=== PATIENT | female | born 2000 | race Caucasian/White ===

== ENCOUNTER 2020-06-20 13:23 | Emergency (ER) | payer OTHER ==
[~2020-06-20] VITALS: Ht 170.2 cm; Wt 59.0 kg
[~2020-06-20 13:23] MED LIST: Keflex500 MG PO; Pyridium200 MG PO
[2020-06-20] MEDS ORDERED: PRENATAL TABLE1 EAC2 PO (15:49)
== END 2020-06-20 17:00 | disposition home or self-care (01) ==
LOC: ER 13:23
DX: O20.0 Threatened abortion (principal); Z3A.01 Less than 8 weeks gestation of pregnancy
CPT/HCPCS: 76801; 86900; 86901; 96372; 99284-25; J2791

== ENCOUNTER 2021-02-11 01:46 | Inpatient (IN) | payer OTHER ==
[~2021-02-11] VITALS: Ht 170.2 cm; Wt 85.0 kg
[~2021-02-11 01:46] MED LIST changes: +PRENATAL TABLE1 EAC2 PO
[2021-02-11 02:29] LABS: BASOPHILS ABSOLUTE AUTO 0.03 K/mm3 (0.00-0.23); BASOPHILS PERCENT AUTO 0 % (0-2); EOSINOPHILS ABSOLUTE AUTO 0.13 K/mm3 (0.00-0.68); EOSINOPHILS PERCENT AUTO 1 % (0-6); Hematocrit 38.8 % (33.0-51.0); Hemoglobin 13.2 g/dL (11.5-16.0); IMMATURE GRAN ABSOLUTE AUTO 0.07 K/mm3 (0.00-0.10); IMMATURE GRAN PERCENT AUTO 1 % (0-1); LYMPHOCYTES ABSOLUTE AUTO 2.76 K/mm3 (0.84-5.20); LYMPHOCYTES PERCENT AUTO 20 % (21-46); MONOCYTES ABSOLUTE AUTO 0.97 K/mm3 (0.16-1.47); MONOCYTES PERCENT AUTO 7 % (4-13); Mean Corpuscular HGB 31.1 pg (26.0-34.0); Mean Corpuscular Volume 92 fL (80-100); Mean Platelet Volume 9.9 fL (9.1-12.4); NEUTROPHILS ABSOLUTE AUTO 9.93 K/mm3 (1.96-9.15); NEUTROPHILS PERCENT AUTO 72 % (41-73); Platelet Count 187 K/mm3 (150-400); RDW Coefficient Variation 12.1 % (11.7-14.2); RDW Standard Deviation 40.6 fL (35.1-46.3); Red Blood Cell Count 4.24 M/mm3 (3.80-5.20); White Blood Cell Count 13.89 K/mm3 (4.00-11.30)
[2021-02-11 03:19] LABS: SARS-Cov-2 (COVID-19) PCR, MMC NEGATIVE (NEGATIVE)
--- NOTE | 2021-02-11 14:18 | NUR ---
1400: OOB TO SHOWER. PT FELT LEGS WERE TOO WEAK TO CE SHOWER AT THIS TIME. TO BRP, VOIDED. TOWEL BATH DONE. TONJA CARE DONE AND PT AMBULATED BACK TO BED. WILL TRY SHOWER LATER. PT TO BED TO NAP. NB IN CRIB AT BEDSIDE
--- NOTE | 2021-02-12 03:55 | NUR ---
PT REFUSE ABD BINDER, STATING "I DONT WANT TO USE IT, I DONT LIKE IT.' PT EDUCATED ON IMPORTANCE OF BINDER. PT VERBALIZED UNDERSTANDING AND STILL DECLINED.
[2021-02-12 06:24] LABS: Hematocrit 34.4 % (33.0-51.0); Hemoglobin 11.3 g/dL (11.5-16.0); Mean Corpuscular HGB 31.4 pg (26.0-34.0); Mean Corpuscular HGB Conc 32.8 g/dL (31.5-36.5); Mean Corpuscular Volume 96 fL (80-100); Mean Platelet Volume 9.9 fL (9.1-12.4); Platelet Count 145 K/mm3 (150-400); RDW Coefficient Variation 12.3 % (11.7-14.2); RDW Standard Deviation 42.6 fL (35.1-46.3); White Blood Cell Count 11.95 K/mm3 (4.00-11.30)
[2021-02-12] MEDS ORDERED: IBUP800 (12:48)
== END 2021-02-12 13:40 | disposition home or self-care (01) | DRG 806 ==
LOC: BC 01:46 → OBS 01:46 → BC 02:13
PROVIDERS: Advanced Practice Midwife; ADMIT Registered Nurse Community Health
PROC: 10E0XZZ Delivery of Products of Conception, External Approach (ICD-10-PCS; principal; 2021-02-11)
PROC: 3E0R3BZ Introduction of Anesthetic Agent into Spinal Canal, Percutaneous Approach (ICD-10-PCS; 2021-02-11)
PROC: 00HU33Z Insertion of Infusion Device into Spinal Canal, Percutaneous Approach (ICD-10-PCS; 2021-02-11)
PROC: 10907ZC Drainage of Amniotic Fluid, Therapeutic from Products of Conception, Via Natural or Artificial Opening (ICD-10-PCS; 2021-02-11)
PROC: 0HQ9XZZ Repair Perineum Skin, External Approach (ICD-10-PCS; 2021-02-11)
PROC: 3E0234Z Introduction of Serum, Toxoid and Vaccine into Muscle, Percutaneous Approach (ICD-10-PCS; 2021-02-12)
DX: O48.0 Post-term pregnancy (principal); O99.324 Drug use complicating childbirth; Z37.0 Single live birth; Z3A.40 40 weeks gestation of pregnancy; O62.2 Other uterine inertia; F12.90 Cannabis use, unspecified, uncomplicated; Z20.822 Contact with and (suspected) exposure to COVID-19; O70.0 First degree perineal laceration during delivery; F43.10 Post-traumatic stress disorder, unspecified; O77.0 Labor and delivery complicated by meconium in amniotic fluid; F41.9 Anxiety disorder, unspecified; F32.9 Major depressive disorder, single episode, unspecified; Z62.810 Personal history of physical and sexual abuse in childhood; Z23 Encounter for immunization
CPT/HCPCS: 36415; 51702; 59025; 85025; 85027; 86850; 86900; 86901; 90471; A9270; J1885; J2001; J2210; J2590; J3010; J7120; U0004

== ENCOUNTER → 2021-11-08 | Outpatient (CLI) | payer OTHER ==
[~2021-11-08] MED LIST changes: +IBUP800
== END | disposition home or self-care (01) ==
LOC: LAB 07:30 → LAB SHORT 07:30
DX: J02.9 Acute pharyngitis, unspecified (principal)
CPT/HCPCS: 87081

== ENCOUNTER 2023-01-07 07:16 | Inpatient (IN) | payer OTHER ==
[~2023-01-07] VITALS: Ht 172.7 cm; Wt 94.3 kg
[2023-01-07] VITALS (30 sets, daily range): BP systolic 111–156; BP diastolic 61–96
[2023-01-07 08:17] LABS: BASOPHILS ABSOLUTE AUTO 0.03 K/mm3 (0.00-0.23); BASOPHILS PERCENT AUTO 0 % (0-2); EOSINOPHILS ABSOLUTE AUTO 0.09 K/mm3 (0.00-0.68); EOSINOPHILS PERCENT AUTO 1 % (0-6); Hematocrit 36.3 % (33.0-51.0); Hemoglobin 12.2 g/dL (11.5-16.0); IMMATURE GRAN ABSOLUTE AUTO 0.09 K/mm3 (0.00-0.10); IMMATURE GRAN PERCENT AUTO 1 % (0-1); LYMPHOCYTES ABSOLUTE AUTO 1.83 K/mm3 (0.84-5.20); LYMPHOCYTES PERCENT AUTO 14 % (21-46); MONOCYTES ABSOLUTE AUTO 0.62 K/mm3 (0.16-1.47); MONOCYTES PERCENT AUTO 5 % (4-13); Mean Corpuscular HGB 29.4 pg (26.0-34.0); Mean Corpuscular HGB Conc 33.6 g/dL (31.5-36.5); Mean Corpuscular Volume 88 fL (80-100); Mean Platelet Volume 10.3 fL (9.1-12.4); NEUTROPHILS ABSOLUTE AUTO 10.34 K/mm3 (1.96-9.15); NEUTROPHILS PERCENT AUTO 80 % (41-73); Platelet Count 190 K/mm3 (150-400); RDW Coefficient Variation 12.2 % (11.7-14.2); RDW Standard Deviation 38.9 fL (35.1-46.3); Red Blood Cell Count 4.15 M/mm3 (3.80-5.20)
--- NOTE | 2023-01-07 11:45 | NUR ---
Assumed care from Vania Cruz RN
--- NOTE | 2023-01-07 22:35 | NUR ---
Pt sitting in bed. All needs met at this time.
--- NOTE | 2023-01-07 22:52 | NUR ---
Pt requesting pain meds. notified Nurse. no further needs at this time.
[2023-01-08 05:44] VITALS: BP 108/58
[2023-01-08 09:30] VITALS: BP 116/63
[2023-01-08 12:10] VITALS: BP 124/85
== END 2023-01-08 12:35 | disposition home or self-care (01) | DRG 806 ==
LOC: OBS 07:16 → BC 07:18 → OBS 07:23 → BC 07:25
PROVIDERS: ADMIT Advanced Practice Midwife
PROC: 10E0XZZ Delivery of Products of Conception, External Approach (ICD-10-PCS; principal; 2023-01-07)
PROC: 3E0R3BZ Introduction of Anesthetic Agent into Spinal Canal, Percutaneous Approach (ICD-10-PCS; 2023-01-07)
PROC: 00HU33Z Insertion of Infusion Device into Spinal Canal, Percutaneous Approach (ICD-10-PCS; 2023-01-07)
DX: O48.0 Post-term pregnancy (principal); O99.324 Drug use complicating childbirth; Z37.0 Single live birth; F12.90 Cannabis use, unspecified, uncomplicated; Z3A.40 40 weeks gestation of pregnancy
CPT/HCPCS: 36415; 51702; 85025; 86850; 86870; 86900; 86901; A9270; J1885; J2590; J7120